=== PATIENT | female | born 1960 | race Caucasian/White ===

== ENCOUNTER 2018-11-22 10:21 | Outpatient (CLI) | END 2018-11-22 10:22 | disposition home or self-care (01) | LOC: RHC-LAB 10:21 → FCC-LAB 10:22 | PROVIDERS: ATTEND Family Medicine | DX: E78.49 Other hyperlipidemia (principal); I10 Essential (primary) hypertension; E04.1 Nontoxic single thyroid nodule | CPT/HCPCS: 36415; 80053; 80061; 84439; 84443; 85025 ==

== ENCOUNTER 2018-12-02 14:27 | Outpatient (CLI) | END 2018-12-02 14:28 | disposition home or self-care (01) | LOC: RHC-LAB 14:27 → FCC-LAB 14:28 | PROVIDERS: ATTEND Family Medicine | DX: E04.1 Nontoxic single thyroid nodule (principal); R73.9 Hyperglycemia, unspecified | CPT/HCPCS: 36415; 83036; 84439 ==